=== PATIENT | female | born 1950 | race Caucasian/White ===

== ENCOUNTER 2021-12-05 21:43 | Emergency (ER) | payer MEDICARE, SELFPAY ==
[2021-12-05 22:52] LABS: Bilirubin Small (Negative); Blood, Urine Trace (Negative); Clarity Clear (Clear); Glucose, Urine (Dipstick) Negative (Negative); Ketone, Urine 15 mg/dL (Negative); Leukocyte Trace (Negative); Nitrite Negative (Negative); Protein, Urine (Dipstick) 30 mg/dL (Neg-Trace); Urobilinogen 0.2 mg/dL (Less than 2); pH, Urine 5.5 (5.0-9.0)
[2021-12-05 23:03] LABS: Bacteria/HPF Rare-Few HPF (None Seen); RBC/HPF 0-3 HPF (0-3)
[2021-12-05] MEDS ORDERED: HYDROcodone/Acetaminophen 10/325 mg Tablet ONE (23:24)
[2021-12-05] MEDS ORDERED: Ketorolac Tromethamine 30 MG/ML VIAL ONE (23:24)
[2021-12-06 23:00] LABS: SARS-CoV-2 PCR by NAA Not Detected (NotDetected)
== END 2021-12-05 23:45 | disposition home or self-care (01) ==
LOC: BURERS 21:43
DX: B34.9 Viral infection, unspecified (principal); M25.531 Pain in right wrist; Z20.822 Contact with and (suspected) exposure to COVID-19; E11.9 Type 2 diabetes mellitus without complications; Z79.4 Long term (current) use of insulin
CPT/HCPCS: 84550; 87804 ×2; U0003; U0005; 36415; 81003; 81015; 96372; 99284; J1885